=== PATIENT | female | born 1985 | race Caucasian/White ===

== ENCOUNTER 2020-05-18 10:05 | Outpatient (CLI) | payer BC ==
--- NOTE | 2020-05-18 11:05 | RAD ---
LEFT KNEE 4 VIEWS: Date: 05/18/2020 HISTORY: Left knee pain. FINDINGS/IMPRESSION: No fracture, dislocation, or bony destruction is seen. No osteophytosis is identified. POS: AH
--- NOTE | 2020-05-18 11:06 | RAD ---
RIGHT KNEE 4 VIEWS: Date: 05/18/2020 PROVIDED CLINICAL HISTORY: Pain. FINDINGS: No evidence for fracture or other acute osseous abnormality. There is patella maty. Alignment appears otherwise anatomic. Joint spaces appear preserved. IMPRESSION: 1. No evidence for an acute osseous abnormality or significant arthropathy. 2. Patella maty. POS: JEANIE
== END 2020-05-18 10:06 | disposition home or self-care (01) ==
LOC: RAD-FRANK 10:05
PROVIDERS: ATTEND Nurse Practitioner Family
DX: M25.561 Pain in right knee (principal); M25.562 Pain in left knee; M22.2X1 Patellofemoral disorders, right knee